=== PATIENT | male | born 1975 | race Caucasian/White ===

== ENCOUNTER 2018-05-02 17:22 | Inpatient (IN) | payer OTHER ==
[~2018-05-02] VITALS: Ht 182.9 cm; Wt 86.5 kg
--- NOTE | ~2018-05-02 | EKG ---
[address] [address] ELECTROCARDIOGRAM REPORT Name: MIKAYLA VAUGHAN Room #: 170-2 ADM IN M.R.#: [id number] Admission: 05/02/18 Attend Phys: Kameron Sanders MD Discharge: Date of : 75 Report #: [id number] THIS REPORT FOR: //name// [facility] ED Test Date: 2018-05-02 Test Time: 17:52:30 Pat Name: MIKAYLA VAUGHAN Department: Room: 170 2 Gender: M Helicopter Officer: : 1975 Requested By: Steve Nayak Order Number: [id number] MD: Measurements Intervals [place] Rate: 92 P: 69 [place]: 135 QRS: 53 QRSD: 88 T: 38 QT: 343 QTc: 425 Interpretive Statements Sinus rhythm No previous ECG available for comparison [email or web address] By: 51 175 Epiphany MD Martin /EPI
--- NOTE | ~2018-05-02 | EKG ---
[address] [address] ELECTROCARDIOGRAM REPORT Name: MIKAYLA VAUGHAN Room #: 361-P ADM IN M.R.#: [id number] Admission: 05/02/18 Attend Phys: Stan Livingston Discharge: Date of : 75 Report #: [id number] THIS REPORT FOR: //name// [facility] ED Test Date: 2018-05-02 Test Time: 17:52:30 Pat Name: MIKAYLA VAUGHAN Department: Room: 170 2 Gender: M Sample Selector: : 1975 Requested By: Steve Nayak Order Number: [id number] MD: Donald Weiss Measurements Intervals [place] Rate: 92 P: 69 [place]: 135 QRS: 53 QRSD: 88 T: 38 QT: 343 QTc: 425 Interpretive Statements Sinus rhythm Normal tracing Compared to ECG 11/24/2014 14:36:59 Sinus tachycardia no longer present Electronically Signed On 05-04-2018 7:34:11 CDT by Donald Weiss [email or web address] <ELECTRONICALLY SIGNED> By: Donald Weiss MD, [facility] 05/04/18 0734 D: [id number] 51 Donald Weiss MD, FACC /EPI
--- NOTE | ~2018-05-02 | EKG ---
[address] [address] ELECTROCARDIOGRAM REPORT Name: MIKAYLA VAUGHAN Room #: 361- ADM IN M.R.#: [id number] Admission: 05/02/18 Attend Phys: Stan Livingston Discharge: Date of : 75 Report #: [id number] THIS REPORT FOR: //name// [facility] ED Test Date: 2018-05-02 Test Time: 22:47:19 Pat Name: MIKAYLA VAUGHAN Department: Room: 361 Gender: M Construction Project Mgr: CARA : 1975 Requested By: Steve Nayak Order Number: [id number] MD: Donald Weiss Measurements Intervals [place] Rate: 76 P: 69 DC: 139 QRS: 66 QRSD: 90 T: 48 QT: 393 QTc: 442 Interpretive Statements Sinus rhythm No significant abnormality Compared to ECG 11/24/2014 14:36:59 No significant change was found Electronically Signed On 05-04-2018 7:38:48 CDT by Donald Weiss [email or web address] <ELECTRONICALLY SIGNED> By: Donald Weiss MD, [facility] 05/04/18 0738 46 Donald Weiss MD, [facility] /EPI
[~2018-05-02 17:22] MED LIST: ATIVAN1 MG PO; IBUPROFEN 200200 M1 PO; LOPRESSOR25 PO; OXYCODONE HCL 55 MG PO; REMERON15 MG PO; THIAMINE HCL100 MG PO; TOPROL XL50 MG; TRAZODONE 150150 M1 PO; TRINATE TABLET1 TAB PO; VALIUM5 MG PO; VISTARIL50 MG PO
[2018-05-02 17:39] VITALS: BP 143/95
[2018-05-02 18:37] LABS: ABSOLUTE NEUTROPHILS 4.7 thou/uL (1.4-8.2); BASOPHILS 0.9 % (0.0-2.0); EOSINOPHILS 1.6 % (0.0-3.0); HEMATOCRIT 49.1 % (42.0-52.0); LYMPHOCYTES 26.7 % (24.0-44.0); MCH 31.1 pg (26.0-34.0); MCHC 34.7 g/dL (28.0-37.0); MCV 89.6 fL (80.0-100.0); PLATELET COUNT 232 thou/uL (150-400); POLYS 59.8 % (36.0-66.0); RBC 5.48 mil/uL (4.50-6.00); RDW 13.6 % (10.5-14.5); WBC 7.9 thou/uL (4.0-11.0)
[2018-05-02 18:41] LABS: CALCIUM 8.6 mg/dL (8.5-10.1); CREATININE 1.1 mg/dL (0.7-1.3); POTASSIUM 3.7 mmol/L (3.5-5.1)
[2018-05-02 18:46] LABS: ALBUMIN 4.2 g/dL (3.4-5.0); TOTAL BILIRUBIN 0.3 mg/dL (<0.1-1.0); TOTAL PROTEIN 7.6 g/dL (6.4-8.2)
[2018-05-02 22:05] VITALS: BP 132/65
[2018-05-02 23:20] VITALS: BP 143/83
[2018-05-02 23:25] LABS: AMP/METHAMP Negative (Negative); BARBITURATES Negative (Negative); BENZODIAZEPINES Negative (Negative); COCAINE Negative (Negative); METHADONE Negative (Negative); OPIATES Negative (Negative); PCP Negative (Negative)
[2018-05-02 23:26] LABS: MAGNESIUM 1.9 mg/dL (1.8-2.4); PHOSPHORUS 3.8 mg/dL (2.5-4.9)
[2018-05-02] MEDS ORDERED: DOXYCYCLINE 10100 MG PO (23:27)
[2018-05-03] MEDS ORDERED: SYMBICORT80 MCG/4.1 INH
[2018-05-03 04:04] VITALS: BP 138/81
[2018-05-03 07:35] VITALS: BP 140/96
[2018-05-03 11:40] VITALS: BP 148/94
[2018-05-03 16:38] VITALS: BP 138/88
[2018-05-03 19:25] VITALS: BP 119/86
[2018-05-04 00:11] VITALS: BP 110/71
[2018-05-04 04:00] VITALS: BP 143/91
[2018-05-04 07:26] VITALS: BP 146/96
[2018-05-04] MEDS ORDERED: VITAMIN B-1100 M2 PO (07:44)
[2018-05-04] MEDS ORDERED: CHLORDIAZEPOXID25 M1 PO (07:44)
[2018-05-04] MEDS ORDERED: PRENATAL PO (07:45)
[2018-05-04 08:00] VITALS: BP 146/96
== END 2018-05-04 08:57 | disposition home or self-care (01) | DRG 101 ==
LOC: ER 17:22 → EROBS 20:52 → 3W 20:52
PROVIDERS: Emergency Medicine; Nurse Practitioner Acute Care
DX: G40.509 Epileptic seizures related to external causes, not intractable, without status epilepticus (principal); I10 Essential (primary) hypertension; F10.10 Alcohol abuse, uncomplicated; Y90.9 Presence of alcohol in blood, level not specified; F17.210 Nicotine dependence, cigarettes, uncomplicated; F12.10 Cannabis abuse, uncomplicated; F41.9 Anxiety disorder, unspecified; Z88.6 Allergy status to analgesic agent
CPT/HCPCS: 10879

== ENCOUNTER 2018-05-18 17:18 | Inpatient (IN) | payer OTHER ==
[~2018-05-18] VITALS: Ht 182.9 cm; Wt 79.5 kg
--- NOTE | ~2018-05-18 | EKG ---
[address] [address] ELECTROCARDIOGRAM REPORT Name: MIKAYLA VAUGHAN Room #: 360-P [facility] IN .R.#: [id number] Admission: 05/18/18 Attend Phys: Kaushik Baltazar MD Discharge: Date of : 75 Report #: [id number] THIS REPORT FOR: //name// [facility] ED Test Date: 2018-05-18 Test Time: 17:21:00 Pat Name: MIKAYLA VAUGHAN Department: Room: Gender: M J2Ee Developer: : 1975 Requested By: Derrek Ochoa Order Number: [id number] MD: Donald Weiss Measurements Intervals [place] Rate: 94 P: 73 [place]: 139 QRS: 49 QRSD: 83 T: 56 QT: 330 QTc: 413 Interpretive Statements Sinus rhythm No significant abnormality Compared to ECG 05/02/2018 22:47:19 No significant changes Electronically Signed On 05-19-2018 8:41:35 CDT by Donald Weiss [email or web address] <ELECTRONICALLY SIGNED> By: Donald Weiss MD, [facility] 05/19/18 0841 D: [id number] 20 Donald Weiss MD, FAC /EPI
[~2018-05-18 17:18] MED LIST changes: +CHLORDIAZEPOXID25 M1 PO; +DOXYCYCLINE 10100 MG PO; +PRENATAL PO; +SYMBICORT80 MCG/4.1 INH; +VITAMIN B-1100 M2 PO
[2018-05-18] MEDS ORDERED: AMITRIPTYLINE H25 M2 PO (17:22)
[2018-05-18 17:37] LABS: URINE BILIRUBIN NEGATIVE (Negative); URINE BLOOD TRACE (Negative); URINE CLARITY CLEAR; URINE COLOR YELLOW; URINE GLUCOSE-RANDOM* NEGATIVE (Negative); URINE KETONES NEGATIVE (Negative); URINE LEUKOCYTES-REFLEX NEGATIVE (Negative); URINE NITRITE-REFLEX NEGATIVE (Negative); URINE PROTEIN (DIPSTICK) 1+ (Negative); URINE SPECIFIC GRAVITY 1.015 (1.005-1.035); URINE UROBILINOGEN 0.2 E.U./dl (0.2-1.0)
[2018-05-18 17:45] LABS: AMP/METHAMP Negative (Negative); BARBITURATES Negative (Negative); BENZODIAZEPINES POSITIVE (Negative); COCAINE Negative (Negative); METHADONE Negative (Negative); OPIATES Negative (Negative); PCP Negative (Negative)
[2018-05-18 17:52] LABS: HEMATOCRIT 52.7 % (42.0-52.0); HEMOGLOBIN 18.6 gm/dL (14.0-18.0); MCH 31.7 pg (26.0-34.0); MCHC 35.3 g/dL (28.0-37.0); MCV 89.9 fL (80.0-100.0); RBC 5.86 mil/uL (4.50-6.00); RDW 13.2 % (10.5-14.5); WBC 10.7 thou/uL (4.0-11.0)
[2018-05-18 18:00] LABS: CALCIUM 8.6 mg/dL (8.5-10.1); CREATININE 1.1 mg/dL (0.7-1.3); POTASSIUM 3.8 mmol/L (3.5-5.1); SALICYLATE 4.2 mg/dL (2.8-20.0)
[2018-05-18 18:17] LABS: BACTERIA-REFLEX 1-9 Few /HPF (None Seen); CASTS None Seen /LPF (None Seen); CRYSTALS None Seen /LPF (None Seen); SQUAMOUS None Seen /LPF (0-3); URINE RBC 0-2 Rare /HPF (0-2); URINE WBC-REFLEX None Seen /HPF (0-5)
[2018-05-18 19:35] VITALS: BP 120/79
[2018-05-18 19:48] VITALS: BP 120/79
[2018-05-18 20:04] VITALS: BP 130/87
[2018-05-18 21:35] LABS: MAGNESIUM 1.7 mg/dL (1.8-2.4); PHOSPHORUS 3.9 mg/dL (2.5-4.9)
[2018-05-18 22:00] LABS: FOLIC ACID 8.6 ng/mL (8.6-58.9)
[2018-05-19] VITALS: BP 118/56
[2018-05-19 04:22] VITALS: BP 126/83
[2018-05-19 05:58] LABS: MCH 31.7 pg (26.0-34.0); MCHC 35.1 g/dL (28.0-37.0); MCV 90.4 fL (80.0-100.0); RBC 5.08 mil/uL (4.50-6.00); RDW 13.5 % (10.5-14.5); WBC 9.5 thou/uL (4.0-11.0)
[2018-05-19 06:06] LABS: CALCIUM 8.2 mg/dL (8.5-10.1); CREATININE 1.1 mg/dL (0.7-1.3); POTASSIUM 3.6 mmol/L (3.5-5.1)
[2018-05-19 06:07] LABS: HEMOGLOBIN 16.1 gm/dL (14.0-18.0)
[2018-05-20 03:48] VITALS: BP 116/80
[2018-05-20 06:31] LABS: CALCIUM 8.2 mg/dL (8.5-10.1); CREATININE 0.9 mg/dL (0.7-1.3); MAGNESIUM 1.7 mg/dL (1.8-2.4); PHOSPHORUS 1.9 mg/dL (2.5-4.9); POTASSIUM 3.9 mmol/L (3.5-5.1)
[2018-05-20 08:04] VITALS: BP 159/108
[2018-05-20 18:11] LABS: TRICYCLIC (TCA) CONFIRMATION Negative ng/mL (Cutoff=100)
[2018-05-20 18:47] VITALS: BP 157/112
[2018-05-21 04:50] VITALS: BP 144/102
[2018-05-21 07:47] VITALS: BP 132/90
[2018-05-21 12:09] VITALS: BP 158/105
[2018-05-21 15:59] VITALS: BP 151/108
[2018-05-21 19:56] VITALS: BP 139/97
[2018-05-22 00:02] VITALS: BP 134/95
[2018-05-22 04:14] VITALS: BP 122/87
[2018-05-22 07:11] VITALS: BP 130/89
[2018-05-22] MEDS ORDERED: HOME MEDICATION TOP (14:43)
[2018-05-22] MEDS ORDERED: PRENATAL PO (14:43)
[2018-05-22] MEDS ORDERED: NICOTINE TRANSD21 M1 TRANSDERM (14:43)
[2018-05-22] MEDS ORDERED: PEPCID20 MG PO (14:43)
[2018-05-22] MEDS ORDERED: VISTARIL 25 MG25 M1 PO (14:43)
[2018-05-22 15:29] VITALS: BP 142/93
== END 2018-05-22 17:30 | DRG 918 ==
LOC: ER 17:18 → EROBS 19:05 → 3W 19:05
PROVIDERS: Emergency Medicine; Nurse Practitioner Family
DX: T43.012A Poisoning by tricyclic antidepressants, intentional self-harm, initial encounter (principal); R45.851 Suicidal ideations; F10.239 Alcohol dependence with withdrawal, unspecified; F32.9 Major depressive disorder, single episode, unspecified; F41.9 Anxiety disorder, unspecified; J44.9 Chronic obstructive pulmonary disease, unspecified; I10 Essential (primary) hypertension; F17.210 Nicotine dependence, cigarettes, uncomplicated; F10.229 Alcohol dependence with intoxication, unspecified; Z79.899 Other long term (current) drug therapy; Y92.89 Other specified places as the place of occurrence of the external cause; Z88.8 Allergy status to other drugs, medicaments and biological substances; Z72.89 Other problems related to lifestyle
CPT/HCPCS: 10879

== ENCOUNTER 2018-08-07 17:36 | Inpatient (IN) | payer OTHER, BC ==
[~2018-08-07] VITALS: Ht 182.9 cm; Wt 91.4 kg
--- NOTE | ~2018-08-07 | HC ---
[facility] [place] [address] CONSULTATION Name: MIKAYLA VAUGHAN Room #: 216-P [facility] IN ..#: [id number] Admission: 08/07/18 Attend Phys: Kameron Sanders MD Discharge: 08/08/18 Date of : 75 Report #: [id number] THIS REPORT FOR: //name// CC: Kameron Rizvitings DATE OF SERVICE: 08/08/2018 HISTORY OF PRESENT ILLNESS: This is a 42-year-old male patient who was evaluated by me for any neurological etiology for the patient's seizures. This patient's records were reviewed. He is cautious about giving his history. As his prior notes indicate, he has changed his histories in the past. Initially, he indicated that he had a seizure and that is why he was admitted. Then, he indicated that he does not know if it was a real seizure or not. This is after I explained to him that he needs to take seizure precautions and we will not be able to drive 6 months if had a seizure. Then, he said he was on Keppra, but he never had a seizure. He indicated he was on Keppra as a prophylactic for alcohol withdrawal seizure. That would be unusual alcohol withdrawal protocol. REVIEW OF SYSTEMS: This patient was seen by Dr. Garland at one time and her diagnosis was TIA. I reviewed that records and it looks like he had a CT angiogram of the head and neck and that was unremarkable. He was also seen by psychiatrist and in fact, he was admitted to [address] [place] [address]. He has had a history of overdose at one time. He thinks anxiety is his problem but depression is not a problem. He is not suicidal or homicidal. I carried out 14-point review of system and this was his relevant 14-point review of system. PAST MEDICAL HISTORY: Questionable for seizure and he gives a history that he was given Keppra but that is to prevent the seizures from happening and he claims that this was his first seizure yesterday but subsequently, he said that he is not even sure if it was a seizure. FAMILY HISTORY: Positive for alcoholism as I understand. SOCIAL HISTORY: He smokes as well as drink alcohol. PHYSICAL EXAMINATION: NEUROLOGICAL: Indicates he is alert. He is responsive. He is somewhat withdrawn. He just mainly wants the treatment for his alcohol withdrawal and he said he wants to get detox and I asked him to talk to the other physicians about that. He is oriented. He is able to follow simple commands. His cranial nerve examination appear unremarkable. He has no papilledema. His neuromuscular examination for strength, sensation, reflexes and tone is symmetrical. He has no cerebellar sign. There is no meningeal sign. GENERAL: He is a very well developed individual who does not have any dysmorphic features. [address] [address] CONSULTATION Name: MIKAYLA VAUGHAN Room #: 216-P DIS IN M.R.#: [id number] Admission: 08/07/18 Attend Phys: Kameron Sanders MD Discharge: 08/08/18 Date of : 75 Report #: [id number] CARDIAC: Examination is unremarkable. RESPIRATORY: Examination is unremarkable. VITAL SIGNS: His blood pressure is 132/94, respirations 16, pulse is 77 and temperature is 98.1. IMPRESSION: This patient appeared to have seizure by history. History is confusing as described above. 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 RECOMMENDATIONS: I discussed all of it with the patient in detail. I stressed the importance of stopping alcohol altogether. I told him that he needs to take seizure precaution for [address] for 6 months. He also cannot work near moving machinery or on heights or any place where he can injure himself if he has a seizure. We will get an MRI and an EEG done. Until that shows some abnormality, there is no strong indication to put the patient on anticonvulsant. I did discuss that option with him. He is also okay with that. As mentioned above, he indicates that he is here for detox and that is what he would like to concentrate. I asked him to talk to his admitting doctor about that. We will follow this patient if EEG or MRI shows any abnormality; otherwise, I do not believe any further testing is as necessary from neurological perspective, especially because his TSH and vitamin B12 was normal. Thank you very much for this referral. <ELECTRONICALLY SIGNED> By: Patrice Garay MD 08/14/18 0947 9 213 Patrice Garay MD /nt
--- NOTE | ~2018-08-07 | EEG ---
[facility] [place] [address] ELECTROENCEPHALOGRAM Name: MIKAYLA VAUGHAN Room #: 216-P [facility] IN M.R.#: [id number] Admission: 08/07/18 Attend Phys: Kameron Sanders MD Discharge: 08/08/18 Date of : 75 Report #: [id number] THIS REPORT FOR: //name// CC: Kameron Sanders [facility] DATE OF SERVICE: 08/08/2018 This patient is being evaluated for seizures. EEG was done by placing the electrode by standard 10-20 system of electrode placement. Both referential and sequential montages were used for recording. Background activity in this patient's EEG is about 11 Hz and 40 microvolt. It is a symmetrical activity. Photic stimulation was unremarkable. Throughout the record, no active epileptiform activity was noticed. IMPRESSION: This patient's EEG is within normal limits. Thank you very much for this referral. <ELECTRONICALLY SIGNED> By: Patrice Garay MD 08/14/18 0948 1639 1757 Patrice Garay MD /nt
[~2018-08-07 17:36] MED LIST changes: +AMITRIPTYLINE H25 M2 PO; +HOME MEDICATION TOP; +NICOTINE TRANSD21 M1 TRANSDERM; +PEPCID20 MG PO; +VISTARIL 25 MG25 M1 PO
[2018-08-07 17:47] VITALS: BP 125/86
[2018-08-07 18:52] LABS: HEMATOCRIT 46.9 % (42.0-52.0); HEMOGLOBIN 16.4 gm/dL (14.0-18.0); MCH 31.7 pg (26.0-34.0); MCHC 34.9 g/dL (28.0-37.0); MCV 90.8 fL (80.0-100.0); PLATELET COUNT 230 thou/uL (150-400); RBC 5.16 mil/uL (4.50-6.00); RDW 13.2 % (10.5-14.5); WBC 7.3 thou/uL (4.0-11.0)
[2018-08-07 19:05] LABS: CALCIUM 9.7 mg/dL (8.5-10.1); CREATININE 0.9 mg/dL (0.7-1.3); MAGNESIUM 1.6 mg/dL (1.8-2.4)
[2018-08-07 19:24] LABS: ABSOLUTE NEUTROPHILS 4.4 thou/uL (1.4-8.2)
[2018-08-07 21:17] VITALS: BP 116/64
[2018-08-07 21:57] VITALS: BP 121/76
[2018-08-07] MEDS ORDERED: STIOLTO RESPIMAT4 GM INH (22:31)
[2018-08-07] MEDS ORDERED: VALIUM5 MG PO (22:31)
[2018-08-07 23:02] LABS: HEMATOCRIT 43.4 % (42.0-52.0); HEMOGLOBIN 15.3 gm/dL (14.0-18.0); MCH 31.9 pg (26.0-34.0); MCHC 35.1 g/dL (28.0-37.0); MCV 90.8 fL (80.0-100.0); PLATELET COUNT 191 thou/uL (150-400); RBC 4.78 mil/uL (4.50-6.00); RDW 13.1 % (10.5-14.5); WBC 6.1 thou/uL (4.0-11.0)
[2018-08-07 23:13] LABS: PHOSPHORUS 4.4 mg/dL (2.5-4.9)
[2018-08-07 23:45] LABS: ABSOLUTE NEUTROPHILS 3.1 thou/uL (1.4-8.2); ATYPICAL LYMPHS 6 %
[2018-08-07 23:47] VITALS: BP 121/74
[2018-08-08 03:57] LABS: CALCIUM 9.1 mg/dL (8.5-10.1); CREATININE 0.9 mg/dL (0.7-1.3); POTASSIUM 3.8 mmol/L (3.5-5.1)
[2018-08-08 04:20] VITALS: BP 139/91
[2018-08-08 06:02] LABS: FOLIC ACID 15.2 ng/mL (8.6-58.9)
[2018-08-08 08:03] VITALS: BP 132/94
[2018-08-08] MEDS ORDERED: VALIUM5 MG PO (10:28)
[2018-08-08 15:35] VITALS: BP 132/94
== END 2018-08-08 15:50 | disposition home or self-care (01) | DRG 101 ==
LOC: ER 17:36 → EROBS 20:33 → 2N 20:33
PROVIDERS: Emergency Medicine; Nurse Practitioner Family
DX: G40.89 Other seizures (principal); F10.129 Alcohol abuse with intoxication, unspecified; I10 Essential (primary) hypertension; J44.9 Chronic obstructive pulmonary disease, unspecified; F41.9 Anxiety disorder, unspecified; E83.42 Hypomagnesemia; F17.210 Nicotine dependence, cigarettes, uncomplicated; F19.10 Other psychoactive substance abuse, uncomplicated; Z71.6 Tobacco abuse counseling; Z88.8 Allergy status to other drugs, medicaments and biological substances; Z79.899 Other long term (current) drug therapy; Z81.1 Family history of alcohol abuse and dependence; Z71.51 Drug abuse counseling and surveillance of drug abuser
CPT/HCPCS: 10081

== ENCOUNTER 2020-02-04 17:18 | Emergency (ER) | payer OTHER ==
[~2020-02-04] VITALS: Ht 182.9 cm; Wt 90.7 kg
[~2020-02-04 17:18] MED LIST changes: +STIOLTO RESPIMAT4 GM INH
[2020-02-04] MEDS ORDERED: REMERON 30 MG T30 M1 PO (17:43)
[2020-02-04] MEDS ORDERED: MELOXICAM15 MG PO (17:43)
[2020-02-04] MEDS ORDERED: LOPRESSOR50 MG PO (17:43)
[2020-02-04] MEDS ORDERED: GABAPENTIN 100100 MG PO (17:43)
[2020-02-04 17:47] LABS: HEMATOCRIT 48.2 % (42.0-52.0); HEMOGLOBIN 16.7 gm/dL (14.0-18.0); MCH 32.7 pg (26.0-34.0); MCHC 34.7 g/dL (28.0-37.0); MCV 94.2 fL (80.0-100.0); PLATELET COUNT 208 thou/uL (150-400); RBC 5.11 mil/uL (4.50-6.00); RDW 12.9 % (10.5-14.5); WBC 7.2 thou/uL (4.0-11.0)
[2020-02-04 17:50] LABS: ANION GAP 11 mmol/L (7-16); BUN 14 mg/dL (7-18); CALCIUM 9.1 mg/dL (8.5-10.1); CHLORIDE 99 mmol/L (98-107); CO2 27 mmol/L (21-32); CREATININE 0.9 mg/dL (0.7-1.3); GLUCOSE 117 mg/dL (74-106); POTASSIUM 3.7 mmol/L (3.5-5.1); SODIUM 137 mmol/L (136-145)
[2020-02-04 18:01] LABS: ALBUMIN 4.5 g/dL (3.4-5.0); SGOT 49 U/L (15-37); SGPT 44 U/L (30-65); TOTAL BILIRUBIN 0.8 mg/dL (<0.1-1.0); TOTAL PROTEIN 8.1 g/dL (6.4-8.2); TROPONIN-I <0.06 ng/mL (<0.06)
[2020-02-04 18:24] LABS: URINE BILIRUBIN NEGATIVE (Negative); URINE BLOOD NEGATIVE (Negative); URINE CLARITY CLEAR; URINE COLOR YELLOW; URINE GLUCOSE-RANDOM* NEGATIVE (Negative); URINE KETONES NEGATIVE (Negative); URINE LEUKOCYTES-REFLEX NEGATIVE (Negative); URINE NITRITE-REFLEX NEGATIVE (Negative); URINE PROTEIN (DIPSTICK) NEGATIVE (Negative); URINE SPECIFIC GRAVITY <= 1.005 (1.005-1.035); URINE UROBILINOGEN 0.2 E.U./dl (0.2-1.0)
[2020-02-04 18:31] LABS: AMP/METHAMP Negative (Negative); BARBITURATES Negative (Negative); BENZODIAZEPINES Negative (Negative); COCAINE Negative (Negative); METHADONE Negative (Negative); OPIATES Negative (Negative); PCP Negative (Negative)
[2020-02-04 18:43] LABS: ABSOLUTE NEUTROPHILS 4.5 thou/uL (1.4-8.2)
[2020-02-04 19:23] VITALS: BP 137/83
[2020-02-04] MEDS ORDERED: ONDANSETRON HCL4 M2 PO (20:04)
[2020-02-04] MEDS ORDERED: CHLORDIAZEPOXID25 M1 PO (20:07)
[2020-02-04] MEDS ORDERED: ATIVAN1 M1 PO (20:41)
--- NOTE | 2020-02-05 09:09 | EKG ---
[facility] [place] [address] ELECTROCARDIOGRAM REPORT Name: MIKAYLA VAUGHAN Room #: [facility]#: [id number] Admission: 02/04/20 Attend Phys: Discharge: 02/04/20 Date of : 75 Report #: [id number] THIS REPORT FOR: cc: CAIN - Aby family physician/PCP CAIN - Aby family physician/PCP Donald Weiss MD [facility] THIS REPORT FOR: //name// [facility] ED Test Date: 2020-02-04 Test Time: 17:24:56 Pat Name: MIKAYLA VAUGHAN Department: Room: Gender: Digital Product Specialist: : 1975 Requested By: Radha Thomas Order Number: [id number] MD: Donald Weiss Measurements Intervals [place] Rate: 95 P: 71 CT: 133 QRS: 38 QRSD: 84 T: 52 QT: 343 QTc: 431 Interpretive Statements Sinus rhythm Normal tracing Compared to ECG 05/18/2018 17:21:00 No significant changes Electronically Signed On 02-05-2020 9:07:41 CDT by Donald Weiss [email or web address] <ELECTRONICALLY SIGNED> By: Donald Weiss MD, FACC 02/05/20 0907 1724 1724 Donald Weiss MD, [facility] /EPI
== END 2020-02-04 21:22 | disposition home or self-care (01) ==
LOC: ER 17:18
PROVIDERS: Physician Assistant
DX: F10.920 Alcohol use, unspecified with intoxication, uncomplicated (principal); R07.9 Chest pain, unspecified; R25.1 Tremor, unspecified; R11.0 Nausea; R10.9 Unspecified abdominal pain; I10 Essential (primary) hypertension; J44.9 Chronic obstructive pulmonary disease, unspecified; F41.9 Anxiety disorder, unspecified; F17.210 Nicotine dependence, cigarettes, uncomplicated; Z79.899 Other long term (current) drug therapy; Z88.8 Allergy status to other drugs, medicaments and biological substances; Y90.8 Blood alcohol level of 240 mg/100 ml or more

== ENCOUNTER 2020-09-30 21:28 | Emergency (ER) | payer OTHER ==
[~2020-09-30] VITALS: Ht 180.3 cm; Wt 83.9 kg
--- NOTE | ~2020-09-30 | EKG ---
[facility] [place] [address] ELECTROCARDIOGRAM REPORT Name: MIKAYLA VAUGHAN Room #: DEP [facility]#: [id number] Admission: 09/30/20 Attend Phys: Discharge: 10/01/20 Date of : 75 Report #: [id number] THIS REPORT FOR: cc: CAIN Badillo family physician/PCP CAIN Badillo family physician/PCP Martin Salazar MD ~ THIS REPORT FOR: //name// [facility] ED Test Date: 2020-09-30 Test Time: 21:44:51 Pat Name: MIKAYLA VAUGHAN Department: Room: Gender: Store Receiving Specialist: ash : 1975 Requested By: Aaron Mitchell Order Number: [id number] MD: Measurements Intervals [place] Rate: 98 P: 81 [place]: 125 QRS: 76 QRSD: 82 T: 47 QT: 318 QTc: 406 Interpretive Statements Sinus rhythm Right atrial enlargement Consider left ventricular hypertrophy ST elev, probable normal early repol pattern No previous ECG available for comparison [email or web address] By: 2144 2144 Epiphany EpiphanyMD /EPI
[~2020-09-30 21:28] MED LIST changes: +ATIVAN1 M1 PO; +GABAPENTIN 100100 MG PO; +LOPRESSOR50 MG PO; +MELOXICAM15 MG PO; +ONDANSETRON HCL4 M2 PO; +REMERON 30 MG T30 M1 PO
[2020-10-01 00:07] VITALS: BP 181/95
== END 2020-10-01 00:10 | disposition home or self-care (01) ==
LOC: ER 21:28
DX: R05 Cough (principal); R07.89 Other chest pain; I10 Essential (primary) hypertension; J44.9 Chronic obstructive pulmonary disease, unspecified; F17.210 Nicotine dependence, cigarettes, uncomplicated; Z79.899 Other long term (current) drug therapy; Z88.5 Allergy status to narcotic agent

== ENCOUNTER 2020-12-07 20:18 | Inpatient (IN) | payer OTHER ==
[~2020-12-07] VITALS: Ht 182.9 cm; Wt 93.0 kg
--- NOTE | ~2020-12-07 | HC ---
[facility] [place] [place] [address] CONSULTATION Name: MIKAYLA VAUGHAN Room #: 217-P [facility] IN ..#: [id number] Admission: 12/07/20 Attend Phys: Aryan Recio MD Discharge: Date of : 75 Report #: [id number] THIS REPORT FOR: cc: FAM - No family physician/PCP FAM - No family physician/PCP Patrice Orellana MD ~ DATE OF SERVICE: 12/08/2020 HISTORY OF PRESENT ILLNESS: This is a 45-year-old male patient who was evaluated by me for some left-sided headache and some right-sided symptoms. The patient is a poor historian. I reviewed the patient's records and I saw this patient in [address] Garland, another neurologist saw this patient in 2013. In 2018, he had presented with seizure and in 2013, he had presented with similar symptoms. Both times, he had a noncontrast MRI of the brain and that was unremarkable. It looks like in 2018, he had a seizure, but the history is not very clear. He denies any further history of seizure. He was advised to stop drinking alcohol altogether and he continued to drink significant amount of alcohol every day. REVIEW OF SYSTEMS: Positive for alcohol abuse, COPD. 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 I am not sure where his numbness is because sometime he says it is on the right side, sometime he says it is on the left side. He does have a left-sided headache. He was hypertensive when he came in and his blood pressure is being corrected. REVIEW OF SYSTEMS: Positive for hypertensive emergency. He has alcohol intoxication. He has a history of anxiety. Records indicate but I did not confirm from him, he has a suicidal attempt in the past. This was his relevant 14-point review of system. PAST MEDICAL HISTORY: Positive for similar symptom in 2014. FAMILY HISTORY: Positive for question of migraine. SOCIAL HISTORY: He smokes as well as drink alcohol. PHYSICAL EXAMINATION: NEUROLOGICAL: Indicate he is alert. He is responsive. He can follow simple command. When I asked him what month it is, he says it is November 09. His speech looks intact. His cranial nerve examination is mostly unremarkable. His pupils are symmetrical, but I could not have a good look at the patient's fundus. There is no meningeal sign. His strength, sensation, reflexes and tones are symmetrical. His reflexes may be slightly diminished. His position sense is intact. There is no carotid bruit. He has nicely palpable pulses in the lower extremities. There is no edema, cyanosis or jaundice. He is a very [facility] [address] [place] [address] CONSULTATION Name: MIKAYLA VAUGHAN Ankit Room #: 217-P [facility] IN ..#: [id number] Admission: 12/07/20 Attend Phys: Aryan Recio MD Discharge: Date of : 75 Report #: [id number] well-developed individual whose hearing and vision is intact. NECK: He has no thyroid mass or carotid bruit. VITAL SIGNS: His blood pressure is 131/86. His temperature is normal. Pulse is 92. LABORATORY DATA: Indicates a white count is normal. His BUN and creatinine is slightly up, but GFR is always normal. IMPRESSION: I am not sure what the etiology of the patient's headache is. It may be related to his hypertension. It is difficult to tell, but I think it is such a focal thing that we must exclude other pathology. He already had an MRI, I will look at it, but I will probably do an MRI of the brain with and without contrast and a carotid Doppler. His sed rate is there and it is normal. Thank you very much for this referral. By: 1138 1212 Patrice Orellana MD /nt
[2020-12-07 20:20] VITALS: BP 191/103
[2020-12-07 20:33] LABS: HEMATOCRIT 49.1 % (42.0-52.0); PLATELET COUNT 187 thou/uL (150-400)
[2020-12-07 20:38] LABS: HEMOGLOBIN 16.5 gm/dL (14.0-18.0); MCH 32.8 pg (26.0-34.0); MCHC 33.6 g/dL (28.0-37.0); MCV 97.4 fL (80.0-100.0); RBC 5.04 mil/uL (4.50-6.00); RDW 13.9 % (10.5-14.5); WBC 10.7 thou/uL (4.0-11.0)
[2020-12-07 20:39] LABS: ANION GAP 8 mmol/L (7-16); BUN 14 mg/dL (7-18); CALCIUM 8.6 mg/dL (8.5-10.1); CHLORIDE 105 mmol/L (98-107); CO2 31 mmol/L (21-32); CREATININE 1.3 mg/dL (0.7-1.3); GLUCOSE 102 mg/dL (74-106); SODIUM 144 mmol/L (136-145)
[2020-12-07 20:40] LABS: POTASSIUM 4.6 mmol/L (3.5-5.1)
[2020-12-07 20:47] LABS: AMP/METHAMP Negative (Negative); BARBITURATES Negative (Negative); BENZODIAZEPINES POSITIVE (Negative); COCAINE Negative (Negative); METHADONE Negative (Negative); OPIATES Negative (Negative); PCP Negative (Negative)
[2020-12-07 20:47] LABS: PROTIME 9.6 Seconds (9.3-11.4)
[2020-12-07 20:48] LABS: ALBUMIN 3.9 g/dL (3.4-5.0); SGOT 67 U/L (15-37); SGPT 65 U/L (16-63); TOTAL BILIRUBIN 0.4 mg/dL (0.2-1.0); TOTAL PROTEIN 7.1 g/dL (6.4-8.2); TROPONIN-I <0.06 ng/mL (<0.06)
[2020-12-07] MEDS ORDERED: LISINOPRIL10 MG PO (21:02)
[2020-12-07] MEDS ORDERED: TESTOSTERO200 MG/1 M IM (21:03)
[2020-12-07 21:07] LABS: ATYPICAL LYMPHS 3 %
[2020-12-07 21:17] VITALS: BP 135/76
[2020-12-07 21:42] VITALS: BP 127/69
--- NOTE | 2020-12-07 22:00 | NUR ---
PT IS ALERT AND ORIENTED X4. LUNGS ARE CLEAR TO DIMINISHED. COARSE CONGESTED COUGH SMOKES WITH HISTORY. DRINKS DAILY HE REPORTS A FITH OF RUM. EXPLAIN PLAN OF CARE WITH ADMISSION. ALSO COMPLAINS OF RIGHT SIDED NUMBNESS. PT IS FLUSHED. HAND TREMORS NOTED.CIWA protocal done with nursing care and meds given to help with anxious. After meds given pt is sleeping and resting at this time. Call light within reach if needs assistance.
[2020-12-08 00:15] VITALS: BP 151/61
[2020-12-08 03:26] LABS: ALBUMIN 3.4 g/dL (3.4-5.0); ANION GAP 9 mmol/L (7-16); BUN 12 mg/dL (7-18); CALCIUM 8.1 mg/dL (8.5-10.1); CHLORIDE 106 mmol/L (98-107); CHOLESTEROL 157 mg/dL (<200); CO2 27 mmol/L (21-32); CREATININE 1.1 mg/dL (0.7-1.3); GLUCOSE 103 mg/dL (74-106); HDL CHOLESTEROL 69 mg/dL (>40); LDL CHOLESTEROL 80 mg/dL (<100); PHOSPHORUS 3.3 mg/dL (2.5-4.9); SGOT 52 U/L (15-37); SGPT 60 U/L (30-65); SODIUM 142 mmol/L (136-145); TC:HDL 2.3 Ratio (Not establshd); TOTAL BILIRUBIN 0.3 mg/dL (0.2-1.0); TOTAL PROTEIN 6.4 g/dL (6.4-8.2); TRIGLYCERIDE 42 mg/dL (<150); VLDL 8 mg/dL (<40)
[2020-12-08 03:44] LABS: FOLIC ACID 7.2 ng/mL (8.6-58.9)
[2020-12-08 03:51] LABS: GGTP 68 U/L (15-85)
[2020-12-08 04:45] VITALS: BP 100/54
[2020-12-08 07:34] VITALS: BP 131/86
--- NOTE | 2020-12-08 07:45 | EKG ---
[place] [address] [facility] [place] [address] ELECTROCARDIOGRAM REPORT Name: BEST VAUGHANSON Ankit Room #: 217-P ADM IN M.R.#: [id number] Admission: 12/07/20 Attend Phys: Stan Livingston Discharge: Date of : 75 Report #: [id number] [facility] ED Test Date: 2020-12-07 Test Time: 21:13:05 Pat Name: MIKAYLA VAUGHAN Department: Room: [facility] Gender: M Glass Robot Operator: JACINDA : 1975 Requested By: Omkar Avitia Order Number: [id number] MD: Donald Weiss Measurements Intervals [place] Rate: 94 P: 72 CT: 133 QRS: 58 QRSD: 83 T: 31 QT: 327 QTc: 409 Interpretive Statements Sinus rhythm ST elev, probable normal early repol pattern Baseline wander in lead(s) V1 Compared to ECG 09/30/2020 21:44:51 No significant changes found Electronically Signed On 12-08-2020 7:45:47 RUBBER COMPOUNDER MIXER by Donald Weiss [email or web address] <ELECTRONICALLY SIGNED> By: Donald Weiss MD, [facility] 12/08/20 0745 12 12 Donald Weiss MD, [facility] /EPI
[2020-12-08 08:15] VITALS: BP 131/86
[2020-12-08 11:38] VITALS: BP 145/84
[2020-12-08 12:15] VITALS: BP 145/84
--- NOTE | 2020-12-08 14:35 | NUR ---
PT CARE ASSUMED AT 0700. ASSESSMENTS CHARTED. MEDICATIONS CHARTED. LAC IV. SINUS RHYTHM. TREMORS. ANXIOUS. MRI COMPLETE. PT DISCHARGED AMA. IV D/C'D. TELEMETRY D/C'D.
[2020-12-09 00:06] LABS: GLYCOHEMOGLOBIN (HGB A1C) 5.2 % (4.8-5.6)
== END 2020-12-08 15:30 | disposition left against medical advice (07) | DRG 305 ==
LOC: ER 20:18 → 2N 21:52
PROVIDERS: Emergency Medicine; Nurse Practitioner Family; ADMIT Hospitalist; ATTEND Hospitalist
DX: I16.0 Hypertensive urgency (principal); Y90.8 Blood alcohol level of 240 mg/100 ml or more; I10 Essential (primary) hypertension; K22.70 Barrett's esophagus without dysplasia; F17.210 Nicotine dependence, cigarettes, uncomplicated; F41.9 Anxiety disorder, unspecified; J44.9 Chronic obstructive pulmonary disease, unspecified; G47.00 Insomnia, unspecified; F10.129 Alcohol abuse with intoxication, unspecified; Z53.29 Procedure and treatment not carried out because of patient's decision for other reasons; Z79.899 Other long term (current) drug therapy; Z86.73 Personal history of transient ischemic attack (TIA), and cerebral infarction without residual deficits
CPT/HCPCS: 10797